=== PATIENT | female | born 1980 | race Caucasian/White ===

== ENCOUNTER 2016-08-13 17:18 | Emergency (ER) | payer OTHER ==
[2016-08-13 17:31] VITALS: BP 114/75; PULSE 74; TEMP 98.4; BMI 28.0
[2016-08-13] MEDS ORDERED: ACETAMINOPHEN 325 MG TABLET (FP) PO ONE (17:47)
[2016-08-13] MEDS ORDERED: ACETAMINOPHEN 325 MG TABLET (FP) ONE (17:54)
--- NOTE | 2016-08-13 18:50 | PDOC ---
History of Present Illness - General Chief Complaint: Injury Stated Complaint: PAIN Time Seen by Provider: 08/13/16 17:41 History Source: Patient - History of Present Illness Occurred: reports: other Upper Extremity Pain Location: right: arm Past History - Past Medical History Allergies/Adverse Reactions: Allergies Allergy/AdvReac Type Severity Reaction Status Date / Time No Known Allergies Allergy Verified 08/13/16 17:27 Home Medications: Ambulatory Orders NK [No Known Home Medication] 08/13/16 Other medical history: NONE - Immunization History Immunization Up to Date: No - Psycho/Social/Smoking Cessation Hx Anxiety: No Suicidal Ideation: No Smoking History: Never smoked Have you smoked in the past 12 months: No Information on smoking cessation initiated: No Hx Alcohol Use: No Drug/Substance Use Hx: No Substance Use Type: None Review of Systems - Review of Systems Constitutional: No: Chills, Fever Musculoskeletal: No: Joint Pain, Joint Swelling Neurological: No: Numbness, Tingling, Weakness *Physical Exam - Vital Signs Last Vital Signs Temp Pulse Resp BP Pulse Ox 98.4 F 74 18 114/75 100 08/13/16 17:28 08/13/16 17:28 08/13/16 17:28 08/13/16 17:28 08/13/16 17:28 - Physical Exam General Appearance: Yes: Appropriately Dressed. No: Apparent Distress HEENT: positive: Normal Voice Neck: positive: Supple Respiratory/Chest: negative: Respiratory Distress Musculoskeletal: positive: Normal Inspection Extremity: positive: Normal Inspection. negative: Tender, Swelling Integumentary: positive: Dry, Warm Neurologic: positive: Fully Oriented, Alert, Normal Mood/Affect, Motor Strength 5/5 Medical Decision Making - Medical Decision Making 08/13/16 19:01 36-year-old female, no significant history, here with RUE pain x 1 month. Pp pain free currently but wants to be evaluated for the first time today. States pain located to R arm near elbow and is intermittent, unable to describe and denies any exacerbating or alleviating factors. Has not taken any pain meds. Denies sensory changes or UE weakness. No trauma. Pt well-appearing and stable with no findings on exam to explain symptoms. Possibly muscular. Dc with [id number] meds as needed and to follow-up with PMD 08/13/16 19:05 *DC/Admit/Observation/Transfer Diagnosis at time of Disposition: Arm pain Qualifiers: Laterality: right Qualified Code(s): M79.601 - Pain in right arm - Discharge Dispostion Disposition: HOME Condition at time of disposition: Good - Patient Instructions Printed Discharge Instructions: DI for Arm Pain Additional Instructions: La causa de cornejo dolor en el brazo no est bonifacio en louise momento ya que cornejo examen era normal. Es posible que sea musculoesqueltico. Contine tomando medicamentos sin receta segn sea necesario y realice un seguimiento con cornejo PMD si el dolor persiste Print Language: PARAGUAYAN
== END 2016-08-13 17:57 | disposition home or self-care (01) ==
LOC: JERFT 17:18
DX: M79.601 Pain in right arm (principal)
CPT/HCPCS: 99281-25

== ENCOUNTER 2019-03-18 18:59 | Emergency (ER) | payer OTHER ==
[2019-03-18 19:05] VITALS: BP 132/73; PULSE 81; TEMP 98; BMI 28.0
--- NOTE | 2019-03-18 20:44 | PDOC ---
History of Present Illness - General Chief Complaint: Injury Stated Complaint: FALL Time Seen by Provider: 03/18/19 19:22 History Source: Patient Exam Limitations: No Limitations - History of Present Illness Initial Comments: 03/18/19 20:57 HISTORY OF PRESENT ILLNESS: 38-year-old woman denies medical history presents emergency department for evaluation of right foot pain. Patient reports she was at work today and slipped on some wet cardboard boxes fallen to the ground. She denies striking her foot on anything on the way to the floor. Patient has been ambulatory on her foot since the incident happened at approximately 4:00. Patient with pain to the dorsum of the right foot rated 5/10 which she describes as a throbbing pain. No recent travel or sick contacts. PAST MEDICAL HISTORY: Denies past medical history SURGICAL HISTORY: Denies ALLERGIES: No known drug allergies REVIEW OF SYSTEMS General/Constitutional: Denies fever or chills. Denies weakness, weight change. HEENT: Denies change in vision. Denies ear pain or discharge. Denies sore throat. Cardiovascular: Denies chest pain or shortness of breath. Respiratory: Denies cough, wheezing, or hemoptysis. Gastrointestinal: Denies nausea, vomiting, diarrhea or constipation. Denies rectal bleeding. Genitourinary: Denies dysuria, frequency, or change in urination. Musculoskeletal: see HPI Skin and breasts: Denies rash or easy bruising. Neurologic: Denies headache, vertigo, loss of consciousness, or loss of sensation. Psychiatric: Denies depression or anxiety. Endocrine: Denies increased thirst. Denies abnormal weight change. Hematologic/Lymphatic: Denies anemia, easy bleeding, or history of blood clots. Allergic/Immunologic: Denies hives or skin allergy. Denies latex allergy. PHYSICAL EXAM General Appearance: Well-appearing, appropriately dressed. No apparent distress , no intoxication. Respiratory/Chest: Lungs CTAB. No shortness of breath, chest tenderness, respiratory distress, accessory muscle use. No crackles, rales, rhonchi, stridor , wheezing, dullness Cardiovascular: RRR. S1, S2. No JVD, murmur, bradycardia, tachycardia. Vascular Pulses: Dorsalis-Pedis (R): 2+, Dorsalis-Pedis (L): 2+ Musculoskeletal/Extremities: FROM of all extremities, normal capillary refill. Pelvis Stable. No CVA tenderness. No tenderness to extremities, pedal edema, swelling, erythema or deformity. NVI. Integumentary: Appropriate color, dry, warm. No cyanosis, erythema, jaundice or rash Past History - Past Medical History Allergies/Adverse Reactions: Allergies Allergy/AdvReac Type Severity Reaction Status Date / Time No Known Allergies Allergy Verified 03/18/19 19:05 Home Medications: Ambulatory Orders NK [No Known Home Medication] 08/13/16 COPD: No - Immunization History Immunization Up to Date: No - Suicide/Smoking/Psychosocial Hx Smoking History: Never smoked Have you smoked in the past 12 months: No Information on smoking cessation initiated: No Hx Alcohol Use: No Drug/Substance Use Hx: No Substance Use Type: None *Physical Exam - Vital Signs Last Vital Signs Temp Pulse Resp BP Pulse Ox 98 F 81 19 132/73 99 03/18/19 19:03 03/18/19 19:03 03/18/19 19:03 03/18/19 19:03 03/18/19 19:03 ED Treatment Course - RADIOLOGY Radiology Studies Ordered: Category Date Time Status ANKLE & FOOT-RIGHT* [RAD] Stat Radiology 03/18/19 19:22 Taken Medical Decision Making - Medical Decision Making 03/18/19 20:53 A/P: 38-year-old woman with right foot pain status post slip and fall on wet cardboard today No bony tenderness, deformity, crepitus or step off is present upon palpation to the bones of the ankle and foot on the right side Neurovascularly intact X-rays as read by me: No acute fractures or dislocations present. Mortise is intact. Motrin 600 mg orally now Greg wrap I discussed the physical exam findings, ancillary test results and final diagnoses with the patient. I answered all of the patient's questions. The patient was satisfied with the care received and felt comfortable with the discharge plan and treatment plan. The patient will call their primary care physician within 24 hours to arrange follow-up and will return to the Emergency Department with any new, persistent or worsening symptoms. Portions of this note have been documented using voice recognition software. As a result, errors may occur in the severity of illness coordinator process. Effort has been made to correct all grammatical and severity of illness coordinator error, but some may have been missed. *DC/Admit/Observation/Transfer Diagnosis at time of Disposition: Right foot pain - Discharge Dispostion Disposition: HOME Condition at time of disposition: Stable Decision to Admit order: No - Referrals Referrals: Rufino Trejo MD [Primary Care Provider] - Eduardo Gregorio MD [Staff Physician] - - Patient Instructions Additional Instructions: Take Tylenol or Motrin as needed for pain. Follow manufacturers instructions for appropriate dosage. Try not to walk or bear weight on your right foot as much as possible for the next 3 days. Apply ice for 20 minutes and removed for at least 20 minutes before reapplying the ice. Keep Greg wrap on your foot/ankle as much as possible to help decrease some of the swelling control pain. Whenever possible keep her foot elevated to decrease swelling to your ankle. You've been given the number for a supervisor opening and picking. If symptoms do not resolve within the next 7 days call for re-evaluation. return to the emergency department for any new or worsening symptoms. Thank you very much for choosing us to provide your emergent healthcare needs. - Post Discharge Activity Forms/Work/School Notes: Back to Work
[2019-03-18] MEDS ORDERED: IBUPROFEN 600 MG TABLET (FP) PO ONE ×2 (20:50→20:53)
== END 2019-03-18 21:00 | disposition home or self-care (01) ==
LOC: JERFT 18:59
DX: S99.821A Other specified injuries of right foot, initial encounter (principal); M25.571 Pain in right ankle and joints of right foot; W01.0XXA Fall on same level from slipping, tripping and stumbling without subsequent striking against object, initial encounter; Y93.89 Activity, other specified; Y92.511 Restaurant or cafe as the place of occurrence of the external cause; Y99.0 Civilian activity done for income or pay
CPT/HCPCS: 73610-TC-RT-FY; 73630-TC-RT-FY; 99282-25

== ENCOUNTER 2022-11-10 17:01 | Emergency (ER) | payer OTHER ==
[2022-11-10 17:04] VITALS: BP 140/81; PULSE 88; RESP 18; TEMP 98; BMI 35.4
[2022-11-10] MEDS ORDERED: BACITRACIN ZINC 15 GM TUBE TOPICAL OINTMENT TP ONE (18:25)
[2022-11-10] MEDS ORDERED: IBUPROFEN 600 MG TABLET (FP) PO ONE ×2 (18:25→18:26)
[2022-11-10] MEDS ORDERED: BACITRACIN ZINC 15 GM TUBE TOPICAL OINTMENT ONE (18:26)
== END 2022-11-10 18:47 | disposition home or self-care (01) ==
LOC: JERFT 17:01
DX: S93.491A Sprain of other ligament of right ankle, initial encounter (principal); S80.212A Abrasion, left knee, initial encounter; W01.0XXA Fall on same level from slipping, tripping and stumbling without subsequent striking against object, initial encounter
CPT/HCPCS: 73610-TC-RT-FY; 73630-TC-RT-FY; 99283-25